=== PATIENT | female | born 1985 | race Caucasian/White ===

== ENCOUNTER 2018-06-19 13:46 | Emergency (ER) | payer OTHER ==
--- OUTSIDE RECORDS SUMMARY | 2018-06-19 14:08 | XMS REPORT | Continuity of Care Document ---
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 Sheba Wynn RPAC Primary Care Physician Unavailable Payers Type Date Identification Numbers Payment Provider Subscriber Policy Number: [id number] [facility] [employer] [facility] Allyssa Foster Group Number: [id number] PayID: [id number] [place] [address] Advance Directives Description No Information Available Problems Date Description Provider Status Onset: 05/24/2017 Hypothyroidism Sheba Wynn RPAC Active Onset: 05/24/2017 H/O: depression Sheba Wynn RPAC Active Onset: 05/24/2017 Anxiety disorder Sheba Wynn RPAC Active Onset: 05/24/2017 Essential hypertension Sheba Wynn RPAC Active Onset: 05/24/2017 Obesity Sheba Wynn RPAC Active Onset: 10/03/2017 Steatosis of liver Sheba Wynn RPAC Active Onset: 12/03/2017 Primary infertility Sheba Wynn RPAHoang Active Onset: 12/03/2017 Psoriasis Sheba Wynn RPAHoang Active Note: humira 02/2018 Onset: 12/03/2017 Major depressive disorder, single Sheba Wynn RPAHoang Active episode, unspecified Onset: 05/24/2017 Cigarette smoker Sheba Wynn RPAC Inactive Inactive: 08/04/2017 Onset: 06/17/2017 Acute upper respiratory infection, Demi, Andras, M.D. Resolved unspecified Resolved: 08/04/2017 Onset: 08/02/2017 Acute bronchitis Sheba Wynn RPAC Resolved Resolved: 10/03/2017 Onset: 08/02/2017 Otitis externa Sheba Wynn RPAHoang Resolved Resolved: 10/03/2017 Onset: 10/04/2017 Hypokalemia Sheba Wynn RPAC Resolved Resolved: 12/03/2017 Onset: 10/04/2017 Paralytic ileus Sheba Wynn RPAC Resolved Resolved: 12/03/2017 Onset: 10/04/2017 Bacterial enteritis Sheba Wynn RPAC Resolved Resolved: 12/03/2017 Family History Date Family Member(s) Problem(s) Comments Father Benign Essential Hypertension Father Diabetes Mother Diabetes Social History Type Date Description Comments Sex Unknown Lives With Alone Diet Healthy, Well 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 Ofloxacin 05/22 Active Solution 0.3% 10ml 10 drops H60.313 Wallace, (Otic) instilled Juan Diego, into both ear M.D. canal daily x 7-10 days, while lying on side Irbesartan 04/23 Active Tablets 150mg 45tab 1/2 tab by I10 Rodrigo, s mouth every Juan Diego, day (75mg M.D. tablets on backorder 04/23/18) Levothyroxine 04/18 Active Tablets 200mcg 90tab 1 by mouth Rodrigo, s every day Juan Diego, MSaurabhD. Lac-Hydrin 04/12 Active Cream 12% To psoriasis lesions Virgil Bowers, PH.D,MD Jackson 02/17 Active PSKT 40mg/0.8M per [facility] Virgil Bowers, PH.D, Fluocinonide 08/19 Active Ointment 0.05% to skin Joon lesions bid MD Robinson Fluocinonide 08/19 Active Solution 0.05% to scalp Joon daily MD Robisnon Sertraline HCL 05/24 Active Tablets 50mg 180ta take 2 tabs F34.1 bs [facility] Najma Adamson Hydroxyzine 05/24 Active Tablets 25mg 60tab take 1-2 F34.1 Wallace, HCL s tablets by Juan Diego, mouth at M.D. bedtime as needed for insomnia Xanax Active Tablets 0.25mg 30tab one tablet by Wallace, s mouth every Juan Diego, 12 hours, as M.D. needed, for anxiety. Omeprazole Active Capsules DR 40mg 90cap 1 by mouth Wallace, / s every day Najma Adamson Vitamin D Active Tablets 4000Iu 1 by mouth Unknown every day Multivitamin Active Tablets 1 by mouth Unknown Adult / every day Levothyroxine 01/17 Hx Tablets 88mcg 90tab 1 by mouth Wallace, Sodium s every day Juan Diego, - with the M.D. 04/18 100mcg tablet /2017 Levothyroxine 01/17 Hx Tablets 100mcg 90tab 1 tab by Wallace, Sodium s mouth every , - day with the M.D. 04/18 88mcg tab /2017 Irbesartan 12/03 Hx Tablets 75mg 90tab 1 by mouth I10 Wallace s every day Juan Diego, - M.D. 04/23 Work Note 10/08 Hx May return to work, no Juan Diego, - restrictions M.D. 12/02 Metronidazole 10/04 Hx Tablets 500mg 21tab 1 tab by Wallace s mouth three Juan Diego, - times a day M.D. 12/02 Ondansetron 10/04 Hx Tablets 8mg 15tab take 1 tablet Wallace, HCL s by mouth Juan Diego, - every 8 hours M.D. 12/02 as needed for nausea Cephalexin 08/02 Hx Tablets 500mg 30tab 1 tab (or J20.9 Wallace, s cap) by mouth Juan Diego, - three times a M.D. Ciprodex 08/02 Hx Suspension 0.3-0.1% 7.500 4 drops to H60.92 Wallace, ml (l) ear canal Juan Diego, - twice a day M.D. 08/19 for 7 days Cefuroxime 06/19 Hx Tablets 500mg 20tab 1 tab by Wallace, Axetil s mouth twice a Juan Diego, - day M.D. 07/14 Oseltamivir 06/17 Hx Capsules 75mg 10cap take 1 J06.9 Demi, Phosphate s capsule twice Andras, - daily for 5 M.D. Valsartan 05/24 Hx Tablets 80mg 90tab 1 by mouth I10 Wallace, s every day Juan Diego, - M.D. 12/03 Dovonex 05/24 Hx Cream 0.005% 120gm Thin layer to L40.9 Wallace, psoriasis Juan Diego, - plaques bid M.D. 08/19 Zoloft Hx Tablets 50mg 1 by mouth Unknown /0000 every day - 07/14 Levothyroxine Hx Tablets 175mcg 90tab 1 by mouth Wallace, Sodium /0000 s every day Juan Diego, - M.D. 01/17 Valsartan 00 Hx Tablets 80mg 1 by mouth Unknown /0000 every day - 05/24 Immunizations CPT Code Status Date Vaccine Lot # [id number] Given 04/18/2018 Influenza Virus Vaccine, Quadrivalent, 36 Mos+, [id number] Vital Signs Date Vital Result Comment 05/22/2018 10:59am BP Systolic Sitting Left Arm 110 mmHg BP Diastolic Sitting Left Arm 84 mmHg Body Temperature 97.8 F Heart Rate 80 /min Respiratory Rate 18 /min Height 68.5 inches 5'8.50" Weight 318.00 lb BMI (Body Mass Index) 47.6 kg/m2 BSA (Body Surface Area) 2.50 m2 [place] body weight in kilograms 65 kg O2 % BldC Oximetry 96 % Ra 04/18/2018 10:41am BP Systolic 139 mmHg BP Diastolic 90 mmHg Body Temperature 98.7 F Heart Rate 87 /min Respiratory Rate 18 /min Height 68.5 inches 5'8.50" Weight 313.25 lb BMI (Body Mass Index) 46.9 kg/m2 BSA (Body Surface Area) 2.49 m2 [place] body weight in kilograms 65 kg O2 % BldC Oximetry 96 % 01/17/2018 10:48am BP Systolic Sitting Right Arm 122 mmHg BP Diastolic Sitting Right Arm 80 mmHg Heart Rate 80 /min Respiratory Rate 18 /min Height 68.5 inches 5'8.50" Weight 309.00 lb BMI (Body Mass Index) 46.3 kg/m2 BSA (Body Surface Area) 2.47 m2 [place] body weight in kilograms 65 kg O2 % BldC Oximetry 98 % 12/03/2017 11:32am BP Systolic Sitting Right Arm 122 mmHg BP Diastolic Sitting Right Arm 72 mmHg Body Temperature 99.3 F Heart Rate 89 /min reg Respiratory Rate 18 /min Height 68.5 inches 5'8.50" Weight 313.00 lb BMI (Body Mass Index) 46.9 kg/m2 BSA (Body Surface Area) 2.49 m2 [place] body weight in kilograms 65 kg O2 % BldC Oximetry 96 % 10/04/2017 9:35am BP Systolic Sitting Right Arm 134 mmHg BP Diastolic Sitting Right Arm 98 mmHg Body Temperature 98.6 F Heart Rate 91 /min Respiratory Rate 16 /min Height 68.5 inches 5'8.50" Weight 308.00 lb BMI (Body Mass Index) 46.1 kg/m2 BSA (Body Surface Area) 2.47 m2 [place] body weight in kilograms 65 kg O2 % BldC Oximetry 95 % 08/02/2017 1:11pm BP Systolic Sitting Right Arm 124 mmHg BP Diastolic Sitting Right Arm 86 mmHg Body Temperature 98.6 F Heart Rate 91 /min Height 68.5 inches 5'8.50" Weight 308.00 lb BMI (Body Mass Index) 46.1 kg/m2 BSA (Body Surface Area) 2.47 m2 [place] body weight in kilograms 65 kg O2 % BldC Oximetry 97 % 06/17/2017 11:28am BP Systolic Sitting Left Arm 136 mmHg BP Diastolic Sitting Left Arm 97 mmHg Body Temperature 99.0 F Heart Rate 104 /min Respiratory Rate 18 /min Height 68.5 inches 5'8.50" Weight 304.00 lb BMI (Body Mass Index) 45.5 kg/m2 BSA (Body Surface Area) 2.46 m2 [place] body weight in kilograms 65 kg O2 % BldC Oximetry 96 % 05/24/2017 10:04am BP Systolic Sitting Left Arm 132 mmHg BP Diastolic Sitting Left Arm 86 mmHg Body Temperature 99.9 F Heart Rate 84 /min Height 68.5 inches 5'8.50" Weight 307.00 lb BMI (Body Mass Index) 46.0 kg/m2 BSA (Body Surface Area) 2.47 m2 [place] body weight in kilograms 65 kg O2 % BldC Oximetry 97 % ra Results Test Date Facility Test Result H/L Range Note Laboratory test 04/18/2018 [facility] Thyroid Stim 16.50 uIU/mL High 0.30-4.20 [address] [place] [place] [address] [phone] Free T4 0.65 ng/dL Low 0.76-1.46 Vitamin D,25-Hydroxy 27.6 ng/mL Low 30.0-100.0 2 Basic Metabolic Panel 04/18/2018 [facility] Glucose 106 mg/dL N 74-106 [address] [place] [address] [phone] BUN 11 mg/dL N 7-18 Creatinine 0.7 mg/dL N 0.6-1.3 Glom Filtration Rate, Estimate >60 mL/min >60 If >60 mL/min >60 3 BUN/Creat 15.7 ratio Sodium 141 mmol/L N 136-145 Potassium 4.5 mmol/L N 3.5-5.1 Chloride 107 mmol/L N 98-107 Carbon Dioxide 26 mmol/L N 21-32 Anion Gap 8 mEq/L N 8-16 Calcium 8.4 mg/dL Low 8.5-10.1 TSH Reflex 01/17/2018 [facility] Thyroid Stim 8.99 uIU/mL High 0.30-4.20 FT4 And/Or [address] Hormone FT3 [place] [address] [phone] Reflex add FT3? N Reflex add FT4? Y Free T4 01/17/2018 [facility] Free T4 0.84 ng/dL N 0.76-1.[address] [place], [place] [address] [phone] Reflex add FT3? N Reflex add FT4? Y TSH Reflex 11/30/2017 [facility] Thyroid Stim 74.30 uIU/mL High 0.30-4.20 4 FT4 And/Or [address] Hormone FT3 [place], [place] [address] [phone] Reflex add FT3? N Reflex add FT4? Y Thyroid 11/30/2017 [facility] Thyroglobulin < 1.0 0.0-0.[address] Antibody IU/mL [place], [place] [id number] [phone] Thyroid Peroxidase Antibodies 26 IU/mL 0-34 Free T4 11/30/2017 [facility] Free T4 0.34 ng/dL Low 0.76-1.46 [address] [place] [address] [phone] Reflex add FT3? N Reflex add FT4? Y Urine Culture 10/04/2017 [facility] Urine Culture URETHRAL EVONNE 6 [address] [place] [address] [phone] Quantity 10,000 - 50,000 <SEE NOTE> 7 Urine Dipstick 10/04/2017 [facility] Ua Color glenroy Yellow Ua Clarity clear Clear Ua Leuko - Negative Ua Nitrite - Negative Ua Urobilinogen - Low 0.2 - 1.0 E.U./dL Ua Protein - Negative Ua PH 5 Low 6.5-7.5 Ua Blood - Negative Ua Specific [place] 1.020 1.010-1.030 Ua Ketones - Negative Ua Bilirubin - Negative Ua Glucose - Negative Laboratory test 10/04/2017 [facility] Slide Review (SEE NOTE) 8 finding [address] [place], [place] [address] [phone] CBS W/Automated 10/04/2017 [facility] White Blood 7.2 K/uL N 3.1-10. Diff [address] Count 7 [place] [address] [phone] Red Blood Count 4.26 M/uL N 3.90-5.40 Hemoglobin 13.2 gm/dL N 11.6-15.8 Hematocrit 39.5 % N 36.0-46.1 Mean Cell Volume 92.7 fl N 80.9-99.0 Mean Corpuscular HGB 31.0 pg N 25.9-32.7 Mean Corpuscular HGB Conc 33.4 g/dL N 30.8-34.3 Platelet Count 267 K/uL N 155-360 Red Cell Distri Width SD 40.9 fl N 3-47 Red Cell Distri Width %CV 12.5 % N 11.7-14.4 Mean Platelet Volume 10.5 fL N 8.9-12.4 Neut% 71.0 % N 40.4-72.8 Lymph % 18.9 % Low 20.0-42.0 [place] % 8.3 % N 4.3-13.2 Eo% 1.7 % N 0.0-6.6 Bas% 0.1 % N 0.0-1.1 Neut# 5.12 K/uL N 1.8-7.0 Lymph # 1.36 K/uL N 1.0-4.0 [place] # 0.60 K/uL N 0.3-0.9 Eos # 0.12 K/uL N 0.0-0.5 Baso # 0.01 K/uL N 0.0-0.1 Comprehensive Metabolic 10/04/2017 [facility] Glucose 102 mg/dL N 74-106 Panel [address] [place] [address] [phone] BUN 5 mg/dL Low 7-18 Creatinine 0.6 mg/dL N 0.6-1.3 Glom Filtration Rate, Estimate >60 mL/min >60 If >60 mL/min >60 9 BUN/Creat 8.3 ratio Sodium 142 mmol/L N 136-145 Potassium 3.8 mmol/L N 3.5-5.1 Chloride 108 mmol/L High 98-107 Carbon Dioxide 27 mmol/L N 21-32 Anion Gap 7 mEq/L Low 8-16 Calcium 7.3 mg/dL Low 8.5-10.1 Total Protein 7.2 g/dL N 6.4-8.2 Albumin 3.7 g/dL N 3.4-5.0 Globulin 3.5 g/dL N 1.9-4.3 Alb/Glob 1.1 ratio Bilirubin,Total 0.8 mg/dL N 0.2-1.0 Sgot/Ast 38 U/L High 15-37 SGPT/Alt 63 U/L N 12-78 Alkaline Phosphatase 77 U/L N 45-117 Ova & Parasite 10/04/2017 [facility] Cryptosporidium NEGATIVE FOR [address] Specific Ag CRY <[place] [address] NOTE> [phone] Giardia Specific Antigen NEGATIVE FOR DESTINY <SEE NOTE> 11 Parasite Concentrate Exam No ova, cysts, o <SEE NOTE> 12 Permanent Trichrome Stain Test not perform <SEE NOTE> 13 Stool Culture 10/04/2017 [facility] Stool Culture NO ENTERIC PATHO [address] <SEE NOTE> [place] [address] [phone] . ................ <SEE NOTE> 15 Note: INCLUDES TESTING <SEE NOTE> 16 . PLESIOMONAS, CAM <SEE NOTE> 17 . ................ <SEE NOTE> 18 . YERSINIA AND VIB <SEE NOTE> 19 . SHOULD BE REQUES <SEE NOTE> 20 Shiga Toxin 1 Antigen SHIGA TOXIN 1 NO <SEE NOTE> 21 Shiga Toxin 2 Antigen SHIGA TOXIN 2 NO <SEE NOTE> 22 Basic Metabolic Panel 10/03/2017 [facility] Glucose 102 mg/dL N 74-[address] [place] [address] [phone] BUN 5 mg/dL Low 7-18 Creatinine 0.7 mg/dL N 0.6-1.3 Glom Filtration Rate, Estimate >60 mL/min >60 If >60 mL/min >60 24 BUN/Creat 7.1 ratio Sodium 138 mmol/L N 136-145 Potassium 3.6 mmol/L N 3.5-5.1 Chloride 103 mmol/L N 98-107 Carbon Dioxide 26 mmol/L N 21-32 Anion Gap 9 mEq/L N 8-16 Calcium 7.0 mg/dL Low 8.5-10.1 Laboratory test 10/02/2017 [facility] Thyroid Stim 42.80 High 0.30-4.[address] Hormone uIU/[place] [address] [phone] Free T4 0.82 ng/dL N 0.76-1.46 Basic Metabolic Panel 10/02/2017 [facility] Glucose 82 mg/dL N 74-[address] [place] [address] [phone] BUN 7 mg/dL N 7-18 Creatinine 0.7 mg/dL N 0.6-1.3 Glom Filtration Rate, Estimate >60 mL/min >60 If >60 mL/min >60 25 BUN/Creat 10.0 ratio Sodium 139 mmol/L N 136-145 Potassium 3.1 mmol/L Low 3.5-5.1 Chloride 103 mmol/L N 98-107 Carbon Dioxide 26 mmol/L N 21-32 Anion Gap 10 mEq/L N 8-16 Calcium 6.7 mg/dL Low 8.5-10.1 CBS W/Automated Diff 10/02/2017 [facility] White Blood 5.9 K/uL N 3.1-10.[address] [place] [address] [phone] Red Blood Count 4.14 M/uL N 3.90-5.40 Hemoglobin 12.7 gm/dL N 11.6-15.8 Hematocrit 39.3 % N 36.0-46.1 Mean Cell Volume 94.9 fl N 80.9-99.0 Mean Corpuscular HGB 30.7 pg N 25.9-32.7 Mean Corpuscular HGB Conc 32.3 g/dL N 30.8-34.3 Platelet Count 203 K/uL N 155-360 Red Cell Distri Width SD 43.5 fl N 3-47 Red Cell Distri Width %CV 12.9 % N 11.7-14.4 Mean Platelet Volume 10.0 fL N 8.9-12.4 Neut% 54.9 % N 40.4-72.8 Lymph % 31.8 % N 20.0-42.0 [place] % 10.0 % N 4.3-13.2 Eo% 3.1 % N 0.0-6.6 Bas% 0.2 % N 0.0-1.1 Neut# 3.23 K/uL N 1.8-7.0 Lymph # 1.87 K/uL N 1.0-4.0 [place] # 0.59 K/uL N 0.3-0.9 Eos # 0.18 K/uL N 0.0-0.5 Baso # 0.01 K/uL N 0.0-0.1 Aot Request 10/02/2017 [facility] Aot Request Test(s) added [address] [place] [address] [phone] Tests to be added: TSH, FREE T4 Hepatitis 10/02/2017 [facility] Hepatitis A Negative Negative Evaluation [address] [place] [address] [phone] HBsAg Screen [Ref Lab] Negative Negative Hepatitis B Core IgM Negative Negative HCV Signal/Cutoff ratio 0.1 s/corat 0.0-0.9 27 Ua RFX Micro & Culture 10/01/2017 [facility] Urine Color YELLOW Yellow 28 II [address] [place] [address] [phone] Urine Clarity CLEAR Clear Urine Glucose - Dipstick NEGATIVE mg/dL Negative Urine Bilirubin - Dipstick NEGATIVE Negative Urine Ketone NEGATIVE mg/dL Negative Urine Specific [place] <=1.005 Low 1.010-1.030 Urine Blood NEGATIVE Negative Urine PH 6.0 Low 6.5-7.5 Urine Protein - Dipstick NEGATIVE mg/dL Negative Urine Urobilinogen - Dipstick 0.2 E.U./dL N 0.2-1.0 Urine Nitrite - Dipstick NEGATIVE Negative Urine Leuk Esterase TRACE Abnormal Negative Urine RBC 0-2 rbc/hpf 0-2 Urine WBC 0-2 wbc/hpf 0-7 Urine Epithelial Cells MANY /lpf None Seen 29 Urine Bacteria VERY FEW None Seen Urine Amorph Sediment VERY FEW Negative Source: URINE, CLEAN CAT <SEE NOTE> 30 CBS W/Automated Diff 10/01/2017 [facility] White Blood 7.8 K/uL N 3.1-10.7 [address] [place] [address] [phone] Red Blood Count 4.55 M/uL N 3.90-5.40 Hemoglobin 14.4 gm/dL N 11.6-15.8 Hematocrit 42.6 % N 36.0-46.1 Mean Cell Volume 93.6 fl N 80.9-99.0 Mean Corpuscular HGB 31.6 pg N 25.9-32.7 Mean Corpuscular HGB Conc 33.8 g/dL N 30.8-34.3 Platelet Count 231 K/uL N 155-360 Red Cell Distri Width SD 43.2 fl N 3-47 Red Cell Distri Width %CV 12.9 % N 11.7-14.4 Mean Platelet Volume 10.9 fL N 8.9-12.4 Neut% 72.1 % N 40.4-72.8 Lymph % 16.2 % Low 20.0-42.0 [place] % 10.0 % N 4.3-13.2 Eo% 1.4 % N 0.0-6.6 Bas% 0.3 % N 0.0-1.1 Neut# 5.65 K/uL N 1.8-7.0 Lymph # 1.27 K/uL N 1.0-4.0 [place] # 0.78 K/uL N 0.3-0.9 Eos # 0.11 K/uL N 0.0-0.5 Baso # 0.02 K/uL N 0.0-0.1 Comprehensive Metabolic 10/01/2017 [facility] Glucose 101 mg/dL N 74-106 Panel [address] [place] [address] [phone] BUN 6 mg/dL Low 7-18 Creatinine 0.8 mg/dL N 0.6-1.3 Glom Filtration Rate, Estimate >60 mL/min >60 If >60 mL/min >60 31 BUN/Creat 7.5 ratio Sodium 137 mmol/L N 136-145 Potassium 3.6 mmol/L N 3.5-5.1 Chloride 101 mmol/L N 98-107 Carbon Dioxide 27 mmol/L N 21-32 Anion Gap 9 mEq/L N 8-16 Calcium 7.5 mg/dL Low 8.5-10.1 Total Protein 8.4 g/dL High 6.4-8.2 Albumin 4.0 g/dL N 3.4-5.0 Globulin 4.4 g/dL High 1.9-4.3 Alb/Glob 0.9 ratio Bilirubin,Total 0.8 mg/dL N 0.2-1.0 Sgot/Ast 51 U/L High 15-37 SGPT/Alt 87 U/L High 12-78 Alkaline Phosphatase 79 U/L N 45-117 Laboratory test finding 10/01/2017 [facility] Lipase 57 U/L N 56-289 [address] [place] [address] [phone] HCG,Serum (Qualitative) NEGATIVE (Negative) 32 Influenza A/B 06/17/2017 [facility] Influenza A Negative (Negative) [address] Antigen [place], [place] [address] [phone] Influenza B Antigen Negative (Negative) 34 Ua RFX Micro & Culture 05/24/2017 [facility] Urine Color YELLOW Yellow [address] [place] [address] [phone] Urine Clarity CLEAR Clear Urine Glucose - Dipstick NEGATIVE mg/dL Negative Urine Bilirubin - Dipstick NEGATIVE Negative Urine Ketone NEGATIVE mg/dL Negative Urine Specific [place] 1.020 N 1.010-1.030 Urine Blood NEGATIVE Negative Urine PH 6.0 Low 6.5-7.5 Urine Protein - Dipstick NEGATIVE mg/dL Negative Urine Urobilinogen - Dipstick 0.2 E.U./dL N 0.2-1.0 Urine Nitrite - Dipstick NEGATIVE Negative Urine Leuk Esterase SMALL Abnormal Negative Urine RBC 0-2 rbc/hpf 0-2 Urine WBC 0-2 wbc/hpf 0-7 Urine Epithelial Cells VERY FEW /lpf None Seen Urine Bacteria VERY FEW None Seen Source: URINE, CLEAN CAT <SEE NOTE> 36 1 E03.9,L40.9,I10 2 Vitamin D deficiency has been defined by the [place] [employer] and an Endocrine Society practice guideline as a level of serum 25-OH vitamin D less than 20 ng/mL (1,2). The Endocrine Society went on to further define vitamin D insufficiency as a level between 21 and 29 ng/mL (2). 1. IOM ([place] [employer]). 2010. Dietary reference intakes for calcium and D. [place]: The National Academies Press. 2. Brent MF, Ousmane NC, Lance NEUMANN, et al. Evaluation, treatment, and prevention of vitamin D deficiency: an Endocrine Society clinical practice guideline. JCEM. 2010; 96(7):1911-30. Performed at: RN - [facility] [address] [id number] Tax Accounting Assistant: Cheryl Matthews MD, Phone: [phone] Note: Persistent reduction for 3 months or more in an eGFR <60 mL/min/1.73 m2 defines CKD. Patients with eGFR values >/=60 mL/min/1.73 m2 may also have CKD if evidence of persistent proteinuria is present. The original MDRD equation for estimated GFR is not valid for patients less than 18 years of age. Additional information may be found at www.[email or web address]. 4 E03.9 L40.9 5 Thyroglobulin Antibody measured by Katarina [employer] Methodology Performed at: [address] [id number] Tax Accounting Assistant: Cheryl Matthews MD, Phone: [phone] 6 A08.4 E87.6 R82.90 7 10,000 - 50,000 CFU/mL 8 Instrument flagged sample for slide review. Less than 10% Bands seen, no other immature WBC's seen. RBC morphology essentially normal. Platelet estimate=NORMAL 9 Note: Persistent reduction for 3 months or more in an eGFR <60 mL/min/1.73 m2 defines CKD. Patients with eGFR values >/=60 mL/min/1.73 m2 may also have CKD if evidence of persistent proteinuria is present. The original MDRD equation for estimated GFR is not valid for patients less than 18 years of age. Additional information may be found at www.kdoqi.org. 10 NEGATIVE FOR CRYPTOSPORIDIUM SPECIFIC ANTIGEN 11 NEGATIVE FOR GIARDIA SPECIFIC ANTIGEN. The specimen will be held for 5 days. Additional testing may be performed upon request if the antigen tests are negative, and the patient is still symptomatic or has traveled to an endemic region. Method: Alere Quik Chek Rapid Membrane Enzyme Immunoassay 12 No ova, cysts, or parasites seen. One negative specimen does not rule out the possibility of a parasitic infection. Performed at: [address] [id number] Tax Accounting Assistant: Cheryl Matthews MD, Phone: [phone] 13 Test not performed 14 NO ENTERIC PATHOGENS ISOLATED 15 ................................................... 16 INCLUDES TESTING FOR SALMONELLA, SHIGELLA, AEROMONAS, 17 PLESIOMONAS, CAMPYLOBACTER, AND E. COLI 0157:H7 18 ................................................... 19 YERSINIA AND VIBRIO ARE NOT ROUTINELY SCREENED FOR AND 20 SHOULD BE REQUESTED SEPARATELY 21 SHIGA TOXIN 1 NOT DETECTED 22 SHIGA TOXIN 2 NOT DETECTED Method: ImmunoCard STAT/EHEC Rapid Immunochromatographic Assay 23 ABD PAIN 24 Note: Persistent reduction for 3 months or more in an eGFR <60 mL/min/1.73 m2 defines CKD. Patients with eGFR values >/=60 mL/min/1.73 m2 may also have CKD if evidence of persistent proteinuria is present. The original MDRD equation for estimated GFR is not valid for patients less than 18 years of age. Additional information may be found at www.[email or web address]. 25 Note: Persistent reduction for 3 months or more in an eGFR <60 mL/min/1.73 m2 defines CKD. Patients with eGFR values >/=60 mL/min/1.73 m2 may also have CKD if evidence of persistent proteinuria is present. The original MDRD equation for estimated GFR is not valid for patients less than 18 years of age. Additional information may be found at www.[email or web address]. 26 Tests: TSH, FREE T4 Instructions: 27 INFCE Result Units: s/co ratio Negative: < 0.8 Indeterminate: 0.8 - 0.9 Positive: > 0.9 The CDC recommends that a positive HCV antibody result be followed up with a HCV Nucleic Acid Amplification test ([id number]). Performed at: - [facility] [address] [id number] Tax Accounting Assistant: Cheryl Matthews MD, Phone: [phone] 28 VOMITING, DIARRHEA, FEVER? 29 POSSIBLE UROGENITAL CONTAMINATION. POSSIBLE UROGENITAL CONTAMINATION. POSSIBLE UROGENITAL CONTAMINATION. 30 URINE, CLEAN CATCH 31 Note: Persistent reduction for 3 months or more in an eGFR <60 mL/min/1.73 m2 defines CKD. Patients with eGFR values >/=60 mL/min/1.73 m2 may also have CKD if evidence of persistent proteinuria is present. The original MDRD equation for estimated GFR is not valid for patients less than 18 years of age. Additional information may be found at www.[email or web address]. 32 Method: mig33idel QuickVue One-Step Immunoassay 33 J06.9 34 Please Note: A POSITIVE result for influenza A and/or B antigen does not rule out a co-infection with other pathogens or identify any specific influenza A virus subtype. A NEGATIVE result for influenza A and/or B antigen does not preclude influenza virus infection and should not be the sole basis for treatment or other management decisions, since the antigen present in the specimen may be below the detection limit of the test. A NEGATIVE result is PRESUMPTIVE and it is recommended these results be confirmed by virus culture or an FDA-cleared influenza A and B molecular assay. Method: BD Veritor Chromatographic immunoassay 35 R82.90 36 URINE, CLEAN CATCH Procedures Description No Information Available Encounters Type Date Location Provider Dx Diagnosis Office Visit 04/18/2018 [facility] [facility] [place], I[facility] Essential (primary) 10:45a Office [place], [facility] hypertension E03.9 Hypothyroidism, unspecified L40.9 Psoriasis, unspecified F32.9 Major depressive disorder, single episode, unspecified E28.2 Polycystic ovarian syndrome Z23 Encounter for immunization Office Visit 01/17/2018 10:45a [facility] [place], I[facility] Essential ( primary) Office [facility] hypertension F32.9 Major depressive disorder, single episode, unspecified E03.9 Hypothyroidism, unspecified Office Visit 12/03/2017 11:15a [facility] [place], F32.9 Major depressive Office [place], [facility] disorder, single episode, unspecified E03.9 Hypothyroidism, unspecified L40.9 Psoriasis, unspecified I10 Essential (primary) hypertension Office Visit 10/04/2017 9:45a [facility] [place], A08.4 Viral intestinal Office [place], [facility] infection, unspecified K56.0 Paralytic ileus E87.6 Hypokalemia R82.90 Unspecified abnormal findings in urine Office Visit 08/02/2017 1:15p [facility] [place], I[facility] Essential ( primary) Office [place], [facility] hypertension E03.9 Hypothyroidism, unspecified J20.9 Acute bronchitis, unspecified H60.92 Unspecified otitis externa, left ear Office Visit 06/17/2017 11:20a [facility] [place], I[facility] Essential ( primary) Office [facility] hypertension J06.9 Acute upper respiratory infection, unspecified Office Visit 05/24/2017 10:00a [facility] [place], E03.9 Hypothyroidism, Office [place], [facility] unspecified I10 Essential (primary) hypertension L40.9 Psoriasis, unspecified F34.1 Dysthymic disorder K21.9 Gastro-esophageal reflux disease without esophagitis R06.83 Snoring R82.90 Unspecified abnormal findings in urine Z68.42 Body mass index (BMI) 45.0-49.9, adult Plan of Treatment Future Appointment(s):08/22/2018 10:00 am - [id number]/22/2018 - [facility] W[facility] [id number] Diffuse otitis externa, bilateralNew Medication:Ciprofloxacin HCL 750 mg - 1 tab by mouth twice a dayOfloxacin (Otic) 0.3 % - 10 drops instilled into both ear canal daily x 7-10 days, while lying on side
[2018-06-19 15:05] VITALS: BP 136/84
--- NOTE | 2018-06-19 15:59 | UC ---
Throat Pain/Nasal Main HPI - HPI Summary HPI Summary: 32-year-old female presents with 5 day history of progressively headache, worsening sinus congestion, maxillary sinus pressure, mild sore throat, and a nonproductive cough. Patient has history of psoriasis and is presently on Humira. Last dose one week ago. States she was treated 2 weeks ago for an ear infection with antibiotic eardrops and an unknown oral antibiotic that she took for 5 days. Denies fever, chills, dizziness, vertigo, ear pain, dysphagia, chest pain, shortness of breath, abdominal pain, nausea, vomiting, or diarrhea. - History of Current Complaint Chief Complaint: UCGeneralIllness Stated Complaint: SINUS CONGESTION Time Seen by Provider: 06/19/18 15:54 Hx Obtained From: Patient Pain Intensity: 0 - Allergies/Home Medications Allergies/Adverse Reactions: Allergies Allergy/AdvReac Type Severity Reaction Status Date / Time No Known Allergies Allergy Verified 06/19/18 14:57 Home Medications: Home Medications ALPRAZolam TAB* [Xanax TAB*] 0.25 mg PO Q6H PRN 06/19/18 [History Confirmed 11/28] Adalimumab (NF) [Humira Pen (NF)] 40 mg SUBCUT SEE INSTRUCTIONS 06/19/18 [ History Confirmed 06/19/18] Guaifen/Phenyleph/Acetaminophn [Tylenol Sinus Severe Caplet] 1 each PO Q6HR PRN 06/19/18 [History Confirmed 06/19/18] Levothyroxine TAB* [Synthroid TAB*] 200 mcg PO DAILY 06/19/18 [History Confirmed 06/19/18] Omeprazole 40 mg PO DAILY 06/19/18 [History Confirmed 06/19/18] Sertraline* [Zoloft*] 100 mg PO DAILY 06/19/18 [History Confirmed 06/19/18] PMH/Surg Hx/FS Hx/Imm Hx - Additional Past Medical History Additional PMH: Psoriasis Endocrine History: Hypothyroidism GI/ History: Gastroesophageal Reflux Psychological History: Depression - Surgical History Surgical History: Yes Surgery Procedure, Year, and Place: choly. tonsillectomy. L leg - Family History Known Family History: Positive: Non-Contributory - Social History Occupation: Employed Full-time Lives: Alone Alcohol Use: None Substance Use Type: None Smoking Status (MU): Light Every Day Tobacco Smoker Type: Cigarettes Amount Used/How Often: / PPD Review of Systems All Other Systems Reviewed And Are Negative: Yes Constitutional: Negative: Fever, Chills Eyes: Negative: Drainage, Eye Redness ENT: Positive: Sore Throat, Nasal Discharge, Sinus Congestion, Sinus Pain/ Tenderness. Negative: Ear Ache Respiratory: Positive: Cough. Negative: Shortness Of Breath Cardiovascular: Negative: Palpitations, Chest Pain Gastrointestinal: Negative: Abdominal Pain, Vomiting, Diarrhea, Nausea Genitourinary: Positive: Negative Neurological: Positive: Negative Is Patient Immunocompromised?: No Physical Exam - Summary Physical Exam Summary: GENERAL APPEARANCE: Well developed, well nourished, alert and cooperative, and appears to be in no acute distress. EYES: Conjunctiva clear. No drainage. Vision is grossly intact. EARS: External auditory canals and tympanic membranes clear, hearing grossly intact. NOSE: Mild-moderate nasal congestion with mucosal erythema and edema. THROAT: Mild pharyngeal erythema with post-nasal drainage. No inflammation, swelling, exudate, or lesions. Teeth and gingiva in good general condition. NECK: Neck supple, non-tender without lymphadenopathy. CARDIAC: Normal S1 and S2. No S3, S4 or murmurs. Rhythm is regular. There is no peripheral edema, cyanosis or pallor. Extremities are warm and well perfused. Capillary refill is less than 2 seconds. LUNGS: Clear to auscultation without rales, rhonchi, wheezing or diminished breath sounds. Occasional non-productive cough. ABDOMEN: Positive bowel sounds. Soft, nondistended, nontender. No guarding or rebound. No masses or hepatosplenomegally. MUSKULOSKELETAL: ROM intact to all extremities. No joint erythema or tenderness. Normal muscular development. Normal gait. Triage Information Reviewed: Yes Vital Signs: Initial Vital Signs Temp 97.7 F 06/19/18 14:59 Pulse 83 06/19/18 14:59 Resp 20 06/19/18 14:59 BP 136/84 06/19/18 14:59 Pulse Ox 97 06/19/18 14:59 Vital Signs Reviewed: Yes Throat Pain/Nasal Course/Dx - Course Assessment/Plan: 32-year-old female presents with 5 day history of progressively headache, worsening sinus congestion, maxillary sinus pressure, mild sore throat, and a nonproductive cough. Patient has history of psoriasis and is presently on Humira. Last dose one week ago. States she was treated 2 weeks ago for an ear infection with antibiotic eardrops and an unknown oral antibiotic that she took for 5 days. Denies fever, chills, dizziness, vertigo, ear pain, dysphagia, chest pain, shortness of breath, abdominal pain, nausea, vomiting, or diarrhea. Afebrile. Vital signs stable. Exam reveals dental female in no acute distress with mild to moderate nasal congestion with mucosal erythema and edema, maxillary sinus tenderness, mild pharyngeal erythema with postnasal drip, surgically absent tonsils, no cervical lymphadenopathy, bilateral breath sounds were clear, occasional nonproductive cough, otherwise unremarkable exam. Considering the patient recently completed a course of antibiotics and is presently on Humira I'm going to treat her sinus infection with Augmentin twice a day 10 days as well as symptomatic treatment including saline rinses, fluticasone nasal spray, and an [id number] decongestant. She is to follow-up with her primary care provider in 2 weeks for a recheck of her symptoms or sooner if symptoms do not improve. Anticipatory guidance and warning symptoms were reviewed with the patient. Verbalizes understanding and agrees with plan of care. - Differential Dx/Diagnosis Differential Diagnosis/HQI/PQRI: Influenza, Pharyngitis, Sinusitis, Tonsillitis , URI Provider Diagnosis: Acute maxillary sinusitis Discharge - Sign-Out/Discharge Documenting (check all that apply): Patient Departure All imaging exams completed and their final reports reviewed: No Studies - Discharge Plan Condition: Stable Disposition: HOME Prescriptions: Amoxicillin/Clavulanate TAB* [Augmentin TAB 875*] 875 mg PO BID #10 tab Fluticasone NASAL SPRAY 50MCG* [Flonase NASAL SPRAY 50MCG*] 2 spray BOTH NARES DAILY #1 btl Patient Education Materials: Sinusitis (ED) Forms: *Work Release Referrals: Sheba Wynn PA [Primary Care Provider] - 2 Weeks (Follow up in 2 weeks for recheck of symptoms. Sooner if symptoms do not improve.) Additional Instructions: Your history and exam are consistent with a sinus infection. Since you were recently treated with an antibiotic for an ear infection and the fact that you are on Humira I will treat you with an antibiotic. Take Augmentin 1 tab twice a day for 10 days. Take with food to avoid upset stomach. Be sure to complete the entire course even if you are feeling better. Drink plenty of fluids to avoid dehydration especially if you are running any fever. Use a saline rinse kit such as Neti Pot or NeilMed at least twice a day to help thin secretions and promote drainage of the sinuses. Use fluticasone (Flonase) nasal spray 2 sprays each nostril once daily. Use an over the counter decongestant such as Sudafed according to directions to help with congestion. Take over the counter acetaminophen (Tylenol) or ibuprofen (Advil, Motrin) according to directions as needed for pain or fever. Follow up with your primary care provider in 2 weeks for recheck of symptoms. Sooner if no improvement. Your blood pressure was mildly elevated. You should have this rechecked. Seek immediate medical attention in the emergency room if you have fever greater than 100.5 F despite taking acetaminophen or ibuprofen, have chest pain , difficulty breathing, are unable to swallow, or have any worsening of symptoms. - Billing Disposition and Condition Condition: STABLE Disposition: Home - Attestation Statements Provider Attestation: Patient not seen or examined by me. I was available for consult. I did not diagnose or disposition this patient.
== END 2018-06-19 16:35 | disposition home or self-care (01) ==
LOC: UCCORT 13:46
DX: J01.00 Acute maxillary sinusitis, unspecified (principal); J02.9 Acute pharyngitis, unspecified; L40.9 Psoriasis, unspecified; E03.9 Hypothyroidism, unspecified; K21.9 Gastro-esophageal reflux disease without esophagitis; F32.9 Major depressive disorder, single episode, unspecified; F17.210 Nicotine dependence, cigarettes, uncomplicated; Z79.899 Other long term (current) drug therapy
CPT/HCPCS: 99202; G0463

== ENCOUNTER 2018-12-10 13:30 | Emergency (ER) | payer OTHER ==
[2018-12-10 14:03] VITALS: BP 141/85
--- NOTE | 2018-12-10 14:16 | UC ---
Skin Complaint HPI - HPI Summary HPI Summary: Pt presents with c/o gradual worsening of right ear pain and drainage. Pt has hx of psoriasis and medication prescribed for skin condition but has not used it. She states she is out of her regular medications for anxiety and depression and hypothyroid because she did not keep follow up appointment with PCP and has not followed up in the last 6 months. Pt is tearful during PE. - History of Current Complaint Chief Complaint: UCEar Time Seen by Provider: 12/10/18 13:55 Stated Complaint: FEVER, RT EAR COMPLAINT Hx Obtained From: Patient ?: No Onset/Duration: Gradual Onset, Lasting Days Onset Severity: Mild Current Severity: Mild Pain Intensity: 2 Location: Discrete, Ear (Right) Character: Redness, Painful Aggravating Factor(s): Touch Alleviating Factor(s): Other - has prescription has not used Associated Signs & Symptoms: Positive: Rash, Drainage, Tenderness - Allergy/Home Medications Allergies/Adverse Reactions: Allergies Allergy/AdvReac Type Severity Reaction Status Date / Time No Known Allergies Allergy Verified 12/10/18 13:55 Home Medications: Home Medications Acetaminophen [Tylenol Extra Strength] 1,000 mg PO ONCE PRN 12/10/18 [History Confirmed 12/10/18] PMH/Surg Hx/FS Hx/Imm Hx - Additional Past Medical History Additional PMH: psoriasis Previously Healthy: Yes Psychological History: Anxiety, Depression - Surgical History Surgical History: Yes Surgery Procedure, Year, and Place: choly. tonsillectomy. L leg. partial thyroidectomy - Family History Known Family History: Positive: Non-Contributory - Social History Occupation: Employed Full-time Lives: With Family Alcohol Use: None Substance Use Type: None Smoking Status (MU): Former Smoker Type: eCigarettes Amount Used/How Often: "every now and then" Have You Smoked in the Last Year: Yes - Immunization History Vaccination Up to Date: Yes Review of Systems All Other Systems Reviewed And Are Negative: Yes Constitutional: Positive: Other - tearful Skin: Positive: Rash Eyes: Positive: Negative ENT: Positive: Negative Respiratory: Positive: Negative Cardiovascular: Positive: Negative Gastrointestinal: Positive: Negative Genitourinary: Positive: Negative Motor: Positive: Negative Neurovascular: Positive: Negative Musculoskeletal: Positive: Negative Neurological: Positive: Negative Psychological: Positive: Anxious, Depressed Is Patient Immunocompromised?: No Physical Exam Triage Information Reviewed: Yes Appearance: Other: - tearful Vital Signs: Initial Vital Signs Temp 97.7 F 12/10/18 13:56 Pulse 99 12/10/18 13:56 Resp 20 12/10/18 13:56 BP 141/85 12/10/18 13:56 Pulse Ox 98 12/10/18 13:56 Vital Signs Reviewed: Yes Eye Exam: Normal ENT: Positive: Other - erythematous, Dental Exam: Normal Neck exam: Normal Respiratory Exam: Normal Cardiovascular Exam: Normal Musculoskeletal Exam: Normal Neurological Exam: Normal Psychological Exam: Normal Skin Exam: Other - erythematous, flaky, with clear discharge right and left outer ear canal Course/Dx - Differential Diagnoses - Skin Complaint Differential Diagnoses: Cellulitis, Eczema, Impetigo, Other - psoriasis - Diagnoses Provider Diagnosis: Rash and nonspecific skin eruption, Medication refill Discharge - Sign-Out/Discharge Documenting (check all that apply): Patient Departure All imaging exams completed and their final reports reviewed: No Studies - Discharge Plan Condition: Stable Disposition: HOME Prescriptions: Levothyroxine TAB* [Synthroid 100 MCG TAB*] 200 mcg PO DAILY #30 tab Patient Education Materials: Earache (ED), Dermatitis (ED), Medicine Refill (ED ) Referrals: [facility] [place] [facility] [Outside] - As Soon As Possible No Primary Care Phys,NOPCP [Primary Care Provider] - Additional Instructions: Please use the medicine as prescribed by your caustic purification operator to help relieve and manage your symptoms you discussed at today's visit. - Billing Disposition and Condition Condition: STABLE Disposition: Home
== END 2018-12-10 14:27 | disposition home or self-care (01) ==
LOC: UCCORT 13:30
DX: R21 Rash and other nonspecific skin eruption (principal); L40.9 Psoriasis, unspecified; E03.9 Hypothyroidism, unspecified; F41.9 Anxiety disorder, unspecified; F32.9 Major depressive disorder, single episode, unspecified; Z76.0 Encounter for issue of repeat prescription; Z87.891 Personal history of nicotine dependence
CPT/HCPCS: 99212; G0463